=== PATIENT | male | born 1995 | race Two or more races ===

== ENCOUNTER 2021-04-12 16:11 | Emergency (ER) | payer MEDICAID, SELFPAY ==
--- NOTE | ~2021-04-12 | XR_ITS ---
EXAMINATION: LEFT ANKLE, LEFT FOOT CLINICAL INFORMATION: Left ankle and foot pain after injury COMPARISON: None TECHNIQUE: 2 views left ankle, 3 views left FINDINGS: No bone, joint or soft tissue abnormality is seen. XR/XR ankle LT 2V IMPRESSION: Negative exams
--- NOTE | ~2021-04-12 | XR_ITS ---
EXAMINATION: LEFT ANKLE, LEFT FOOT CLINICAL INFORMATION: Left ankle and foot pain after injury COMPARISON: None TECHNIQUE: 2 views left ankle, 3 views left FINDINGS: No bone, joint or soft tissue abnormality is seen. XR/XR foot LT 2V IMPRESSION: Negative exams
[2021-04-12 16:23] VITALS: BP 114/69; PULSE 87; RESP 18; TEMP 36.9; O2SAT 98; BMI 28.2
[2021-04-12 19:27] VITALS: BP 107/63; PULSE 66; RESP 18; TEMP 36.3; O2SAT 99
--- NOTE | 2021-04-12 20:06 | ED.LOWEXIN ---
HPI - Extremity Injury (Lower) General Chief Complaint: Extremity Injury, Lower Stated Complaint: heard left ankle pop Time Seen by Provider: 04/12/21 20:06 Source: patient Mode of arrival: ambulatory Limitations: no limitations History of Present Illness HPI Narrative: 25-year-old male came in for evaluation of left ankle/foot injury. Patient hurt his left ankle and foot while practicing martial art, patient landed on the left ankle heard a pop. Patient otherwise declined any other symptoms or any other injuries. Related Data Previous Rx's Medication Instructions Recorded ibuprofen 600 mg tablet 600 mg PO TID PRN #20 tab 04/12/21 Allergies Allergy/AdvReac Type Severity Reaction Status Date / Time No Known Allergies Allergy Unverified 02/28/20 16:57 Review of Systems Review of Systems: All other systems are reviewed and are negative Constitutional: Reports as per HPI and Reports no additional constitutional complaints Eyes: Reports as per HPI and Reports no additional eye complaints Reports system reviewed and no additional complaints, except as documented Cardiovascular: Reports as per HPI and Reports no additional cardiovascular complaints Respiratory: Reports as per HPI and Reports no additional respiratory complaints Gastrointestinal: Reports as per HPI and Reports no additional gastrointestinal complaints Genitourinary: Reports no additional female genitourinary complaints Musculoskeletal: Reports no additional musculoskeletal complaints Skin/Breast: Reports system reviewed and no additional complaints, except as docu Psychiatric: Reports no additional psychiatric complaints Endocrine: Reports no additional endocrine complaints Hematologic/Lymphatic: Reports no additional hematologic/lymphatic complaints Allergic/Immunologic: Reports no additional allergic/immunologic complaints Reports system reviewed and no additional complaints, except as documented and Reports Abnormal speech present [facility] Social History Social History Advance Directives: No Advance Directives Information Provided: No Physical Exam Vital Signs: Vital Signs: Last Vital Signs Temp 97.4 F 04/12/21 19:27 Pulse 66 04/12/21 19:27 Resp 18 04/12/21 19:27 BP 107/63 04/12/21 19:27 Pulse Ox 99 04/12/21 19:27 Body Mass Index 28.2 Vital signs have been reviewed as appeared to be correct. Blood pressure normal. Heart rate normal. Respiration rate normal. Temperature normal. Oxygen saturation normal. Appearance: Alert. Oriented X3. No acute distress. Head: Normal external exam. Normocephalic. Atraumatic. No Rosa signs noted. No raccoon eyes noted Eyes: PERRLA. EOMI. Conjunctiva and sclera normal. Eyelids normal. ENT: TM's Normal. Pharynx normal. Uvula midline. Moist mucous membranes. No trismus noted. No drooling noted. No muffled voice noted. Neck: Normal inspection. Neck supple. FROM. No adenopathy. Thyroid Normal. No meningeal signs. No neck mass noted. CVS: Normal heart rate and rhythm. Heart sound normal. No murmurs noted. Pulses normal throughout. Respiratory: No respiratory distress. Painless inspiration. Breath sounds normal. No wheezes/rales/rhonchi noted. Chest nontender. No accessory muscle usage noted or decreased air movement noted. Abdomen: Soft and nontender. Bowel sounds normal in all 4 quadrants. No distention noted. No organomegaly noted. No visible injury noted. Back: No CVA tenderness. Full range of motion noted. Skin: Skin warm and dry. Normal skin color. Normal skin turgor. No rashes/lesions/lacerations noted. Extremities: Left ankle/foot exam: Tenderness over medial malleolus with no deformity or step-off, mild swelling, unable to bear weight on the left foot. Neuro: Oriented X 3. Cranial nerve exam: II-XII are grossly intact No motor deficit. No sensory deficit. Reflexes normal. Course Course Course Narrative: Assessment and plan. 25-year-old male sprained his left ankle. Davidson bandage/ice/NSAIDs/no weight-bearing. MDM - Extremity Injury (Lower) Imaging Data Left foot/ankle x-ray: Radiologist's impression: No acute pathology. Discharge Plan Discharge Clinical Impression: Ankle sprain and strain Patient Disposition: Home, Self-Care Instructions: Ankle Strain (ED) Prescriptions: New ibuprofen 600 mg tablet 600 mg PO TID PRN (Reason: pain) Qty: 20 RF: 0 Referrals: [facility] [Primary Care Provider] - 2 days
== END 2021-04-12 21:05 | disposition home or self-care (01) ==
PROVIDERS: Emergency Provider Emergency Medicine
DX: S93.402A Sprain of unspecified ligament of left ankle, initial encounter (principal); S96.912A Strain of unspecified muscle and tendon at ankle and foot level, left foot, initial encounter; X50.1XXA Overexertion from prolonged static or awkward postures, initial encounter; Y93.75 Activity, martial arts; Y92.9 Unspecified place or not applicable; Y99.9 Unspecified external cause status
CPT/HCPCS: 73600; 73620; 99283

== ENCOUNTER 2025-02-08 13:40 | Emergency (ER) | payer SELFPAY ==
[2025-02-08 13:54] VITALS: BP 130/64; PULSE 71; RESP 16; TEMP 35.7; O2SAT 96; BMI 29.9
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
--- OUTSIDE RECORDS SUMMARY | 2025-02-08 14:06 | XMS_ITS | Encounter Summary ---
Author Organization [facility] Address [address] [place] [address] Phone Care Team Providers Care Paste Up Copy Camera Operator Name Role Phone Po Ward MD Primary Care Provider Encounter Details Date Type Department Care Team (Late st Contact Info) Description 03/29/2014 Documentation [facility] [place] Family Medicine [address] [place], [place] [id number] Family Medicine, Physician [address] [place], [place] [address] Social History Tobacco Use Types Packs/Day Years Used Date Smoking Tobacco: Never Assessed Sex and Gender Information Value Date Recorded Sex Assigned at Not on file Legal Sex Male 4:47 PM EDT Gender Identity Not on file Sexual Orientation Not on file documented as of this encounter Plan of Treatment Not on file documented as of this encounter Visit Diagnoses Not on filedocumented in this encounter Care Teams Paste Up Copy Camera Operator Relationship Specialty Start Date End Date Po Ward MD [address] [facility] [place] [address] PCP - General 01/21/17 12/06/22 documented as of this encounter
--- OUTSIDE RECORDS SUMMARY | 2025-02-08 14:06 | XMS_ITS | Encounter Summary ---
Author Organization [facility] Address [address] [place] [address] Phone Care Team Providers Care Builder'S Labourer Name Role Phone Po Ward MD Primary Care Provider [phone] Encounter Details Date Type Department Care Team (Late st Contact Info) Description 11/22/2012 Documentation [facility] [place] Family Medicine [address] [place], [place] [id number] Family Medicine, Physician [address] [place], [place] [address] Social History Tobacco Use Types Packs/Day Years [...] on filedocumented in this encounter Care Teams Builder'S Labourer Relationship Specialty Start Date End Date Po Ward MD [address] [facility] [place] [address] PCP - General 01/21/17 12/06/22 documented as of this encounter
--- OUTSIDE RECORDS SUMMARY | 2025-02-08 14:06 | XMS_ITS | Clinical Summary ---
Author Organization [facility] Address [address] [place] [phone] Phone Care Team Providers Care Package Line Relief Operator Name Role Phone Unavailable Primary Care Provider Unavailabl e Immunizations Immunization Administration Dates Next Due DTaP 5 11/15/2002, 9,04/07/1998, 998,1997 HPV, Quadrivalent 05/09/2013,12/29/2012,10/24/19 13 Hep A, ped/adol 09/17/2014 Hep B, ped/adol 04/07/1998,1997,1997 Hib (PRP-T) 11/24/1998, 8,01/24/1998, 998 IPV 11/15/2002 Influenza, injectable, trivalent 04/25/2007 MMR 12/28/2001,08/08/1998 Meningococcal Conj (Menactra) MCV4P 10/16/2009 OPV 08/08/1998,01/24/1998,1997 Tdap 10/16/2009 Varicella 12/28/2007,11/24/1998 Family History Relation Name Status Comments Brother Alive Brother: Alive and well, Asthma, Asthma Father Alive Father: Alive a nd well Mother Alive Mother: Hyperte nsion / Asthma Other Close relative: Seizure disorder, Heart disease, Diabetes mellitus type 2 Sister Alive Sister: Alive a nd well Social History Tobacco Use Types Packs/Day Years Used Date Smoking Tobacco: Never Comments:Never smoker Sex and Gender Information Value Date Recorded Sex Assigned at Not on file Legal Sex Male 4:47 PM EDT Gender Identity Not on file Sexual Orientation Not on file Last Filed Vital Signs Vital Sign Reading Time Taken Comments Blood Pressure 104/59 09/17/2014 12:00 AM EDT Pulse 74 09/17/2014 12:00 AM EDT Temperature 36.3 C (97.3 F) 10/09/2013 12:00 AM EDT Respiratory Rate - - Oxygen Saturation - - Inhaled Oxygen Concentration - - Weight 62.1 kg (137 lb) 09/17/2014 12:00 AM EDT Height 164.6 cm (5' 4.8 ) 09/17/2014 12:00 AM ED T Body Mass Index 22.94 09/17/2014 12:00 AM EDT Plan of Treatment Health Maintenance Due Date Last Done Comments Hepatitis A Vaccines (2 of 2 - 2-dose series) 03/19/2015 09/17/2014 DTaP,Tdap,and Td Vaccines (7 - Td or Tdap) 10/17/2019 10/16/2009, 11/15/2002, 04/06/1999, Additional history exists COVID-19 Vaccine ( season) 2024 Influenza Vaccines (#1) 2025 04/25/2007 Hepatitis B Vaccines Completed 04/07/1998, 1997, 1997 HIB Vaccines Completed 11/24/1998, 03/14, 01/24/1998, Additional history exists MMR Vaccines Completed 12/28/2001, 08/08/1998 IPV Vaccines Completed 11/15/2002, 07/15, 01/24/1998, Additional history exists Varicella Vaccines Completed 12/28/2007, 11/24/1998 Meningococcal Vaccine Aged Out 10/16/2009 No stefany julian eligible based on patient's age to complete this topic HPV Vaccines Completed 05/09/2013, 12/11, 10/23/2012 Men B Vaccine Aged Out No longer elig ible based on patient's age to complete this topic Pneumococcal Vaccine Aged Out No long er eligible based on patient's age to complete this topic
--- OUTSIDE RECORDS SUMMARY | 2025-02-08 14:06 | XMS_ITS | Encounter Summary ---
Author Organization [facility] Address [address] [place] [address] Phone Care Team Providers Care Manager Of Financial Name Role Phone Po Ward MD Primary Care Provider [phone] Encounter Details Date Type Department Care Team (Late st Contact Info) Description 11/21/2012 Documentation [facility] [place] [address] [place] [address] Family Medicine, Physician [address] [place], [place] [address] Social History Tobacco Use Types Packs/Day Years [...] on filedocumented in this encounter Care Teams Manager Of Financial Relationship Specialty Start Date End Date Po Ward MD [address] [facility] [place] [address] PCP - General 01/21/17 12/06/22 documented as of this encounter
--- OUTSIDE RECORDS SUMMARY | 2025-02-08 14:06 | XMS_ITS | Encounter Summary ---
Author Organization [facility] Address [address] [place] [address] Phone Care Team Providers Care Emergency Room Specialist Name Role Phone Po Ward MD Primary Care Provider [phone] Encounter Details Date Type Department Care Team (Late st Contact Info) Description 12/01/2009 Documentation [facility] [place] Family Medicine [address] [place] [address] Family Medicine, Physician [address] [place], [place] [phone] Social History Tobacco Use Types Packs/Day Years [...] on filedocumented in this encounter Care Teams Emergency Room Specialist Relationship Specialty Start Date End Date Po Ward MD [address] [facility] [place] [address] PCP - General 01/21/17 12/06/22 documented as of this encounter
--- OUTSIDE RECORDS SUMMARY | 2025-02-08 14:06 | XMS_ITS | Encounter Summary ---
Author Organization [facility] Address [address] [place] [address] Phone Care Team Providers Care Structural Steel Worker Apprentice Name Role Phone Po Ward MD Primary Care Provider Encounter Details Date Type Department Care Team (Late st Contact Info) Description 01/27/2017 Conversion Encounter [facility] [place] [address] [place] [address] Social History Tobacco Use Types Packs/Day Years [...] on filedocumented in this encounter Care Teams Structural Steel Worker Apprentice Relationship Specialty Start Date End Date Po Ward MD [address] [place] [address] PCP - General 01/21/17 12/06/22 documented as of this encounter
--- OUTSIDE RECORDS SUMMARY | 2025-02-08 14:06 | XMS_ITS | Clinical Summary ---
Author Organization [employer] Address [address] [place] [address] [address] [place] [address] Care Team Providers Care Mitigation Supervisor Name Role Phone Smita Gonsalez MD Primary Care Provider [phone] Social History Tobacco Use Types Packs/Day Years Used Date Smoking Tobacco: Never Assessed Sex and Gender Information Value Date Recorded Sex Assigned at Male 04/12/2022 10:35 AM EDT Legal Sex Male 10:35 AM EDT Gender Identity Male 04/12/2022 10:35 AM EDT Sexual Orientation Straight 04/12/2022 10 :35 AM EDT Last Filed Vital Signs Vital Sign Reading Time Taken Comments Blood Pressure 120/60 03/15/2022 12:10 AM EDT Pulse 84 03/15/2022 12:10 AM EDT Temperature - - Respiratory Rate - - Oxygen Saturation - - Inhaled Oxygen Concentration - - Weight 72.5 kg (159 lb 12.8 oz) 022 12:10 AM EDT Height 165.1 cm (5' 5 ) 03/15/2022 12:1 0 AM EDT Body Mass Index 26.59 03/15/2022 12:10 AM EDT Plan of Treatment Health Maintenance Due Date Last Done Comments Depression Screening 1997 HIV Screening 1997 SDOH Screening 1997 Disability Screening 1997 Alcohol/Substance Use Screening 2009 Tobacco Screening 2009 Family Planning (PISQ) 2012 Hepatitis A Vaccines (2 of 2 - 2-dose series) 03/19/2015 09/17/2014 Hepatitis C Screening 2015 COVID-19 Vaccine ( season) 2024 Influenza Vaccine (#1) 2025 , 03/14/2019, 04/25/2007 DTaP/Tdap/Td Vaccines (8 - Td or Tdap) 01/13/2030 01/14/2020, 10/16/2009, 11/15/2002, Additional history exists Zoster Vaccines (1 of 2) 2047 RSV Patients and Patients Aged 60 years or older (1 - 1-dose 75+ series) 2072 Hepatitis B Vaccines Completed 04/07/1998, 1997, 1997 HIB Vaccines Completed 11/24/1998, 03/14, 01/24/1998, Additional history exists IPV Vaccines Completed 11/15/2002, 07/15, 01/24/1998, Additional history exists Meningococcal Vaccine Aged Out 10/16/2009 No stefany julian eligible based on patient's age to complete this topic HPV Vaccines Completed 05/09/2013, 12/11, 10/23/2012 Meningococcal B Vaccine Aged Out No l onger eligible based on patient's age to complete this topic Pneumococcal Vaccine: Pediatrics (0 to 5 Years) and At-Risk Patients (6 to 49) Years Aged Out No longer eligible based on patient's age to complete this topic RSV under 20 months Aged Out No longe r eligible based on patient's age to complete this topic Rotavirus Vaccines Aged Out No longer eligible based on patient's age to complete this topic Insurance [facility] C3 Care Teams Mitigation Supervisor Relationship Specialty Start Date End Date Smita Gonsalez MD [address] [place] [address] [place] [address] PCP - General Family Medicine 04/24/20
[2025-02-08 14:09] VITALS: BP 130/64; PULSE 71; RESP 16; TEMP 35.7; O2SAT 96
== END 2025-02-08 14:09 | disposition home or self-care (01) ==
PROVIDERS: Emergency Provider Emergency Medicine
DX: S16.1XXA Strain of muscle, fascia and tendon at neck level, initial encounter (principal); V49.40XA Driver injured in collision with unspecified motor vehicles in traffic accident, initial encounter; Y93.89 Activity, other specified; Y92.410 Unspecified street and highway as the place of occurrence of the external cause
CPT/HCPCS: 99282; 99283